=== PATIENT | female | born 1980 | race Two or more races ===

== ENCOUNTER → 2017-02-04 | Emergency (ER) | payer SELFPAY ==
[~2017-02-04] VITALS: Ht 167.6 cm; Wt 93.0 kg
[~2017-02-04] MED LIST: IBUPROFEN600 MG ORAL; KEFLEX500 MG ORAL; Morphine Sulfate 4mg/ml Inj IVP ONE; Tubing IV Cassette IV ONE
--- NOTE | 2017-02-04 22:26 | Emergency Room Report ---
History of Present Illness General Chief Complaint: Abdominal Pain Source: Patient Present Illness HPI Is a 36-year-old female with no past medical history. She presents with chief complaint abdominal pain. Onset around noon and was acute. Pain was diffuse 10 out of 10. Said it felt like she was having cramps of having a baby. Pain can be better now. Now localized to the lower quadrant. No dysuria frequency. No hematuria. He has anorexia and has not eaten anything since lunch. Worse with palpation. No fever or chills. No nausea no vomiting. No diarrhea. No sick contact. Allergies: Coded Allergies: Crab (Verified Allergy, Unknown, 02/04/17) Patient History Past Medical History: none Past Surgical History: none Pertinent Family History: none Social History: Denies: smoking Last Menstrual Period: 01/27/17 Now: No Immunizations: other Reviewed Nursing Documentation: PMH: Agreed, PSxH: Agreed Nursing Documentation-PM Past Medical History: No Stated History Review of Systems Eye: Denies: blurred vision, eye pain ENT: Denies: ear pain, nose congestion, throat swelling Respiratory: Denies: cough, shortness of breath Cardiovascular: Denies: chest pain, palpitations Gastrointestinal: Reports: abdominal pain, Denies: diarrhea, nausea, vomiting Musculoskeletal: Denies: back pain, joint pain Skin: Denies: rash Neurological: Denies: headache, numbness Endocrine: Denies: increased thirst, increased urine Hematologic/Lymphatic: Denies: easy bruising All Other Systems: negative except mentioned in HPI Physical Exam Vital Signs Date Time Temp Pulse Resp B/P Pulse Ox O2 Delivery O2 Flow Rate FiO2 02/04/17 22:12 98.8 110 19 112/69 98 Room Air vitals with tachycardia Sp02 EP Interpretation: reviewed, normal General Appearance: well appearing, no apparent distress, alert Head: normocephalic, atraumatic Eyes: bilateral eye EOMI, bilateral eye PERRL ENT: hearing grossly normal, normal pharynx Neck: full range of motion, supple, no meningismus Respiratory: chest non-tender, lungs clear, normal breath sounds Cardiovascular #1: regular rate, rhythm, no murmur Gastrointestinal: normal bowel sounds, no mass, no organomegaly, no bruit, non- distended, tenderness - Right lower quadrant Musculoskeletal: back normal, gait/station normal, normal range of motion Psychiatric: mood/affect normal Skin: warm/dry Medical Decision Making Diagnostic Impression: Primary Impression: Abdominal pain Qualified Codes: R10.84 - Generalized abdominal pain Additional Impression: UTI (urinary tract infection) Qualified Codes: N30.00 - Acute cystitis without hematuria ER Course Patient with abdominal pain. No evidence of acute abdomen. No evidence of obstruction. CT scan unremarkable. Now she is pain-free. May have a mild urinary tract infection. We'll put on antibiotics. Lab Results Impression labs with mild leukocytosis Last Vital Signs Date Time Temp Pulse Resp B/P Pulse Ox O2 Delivery O2 Flow Rate FiO2 02/04/17 22:12 98.8 110 19 112/69 98 Room Air Status: improved Disposition: HOME, SELF-CARE Condition: Stable Scripts Ibuprofen* (MOTRIN*) 600 Mg Tablet 600 MG ORAL THREE TIMES A DAY, #30 TAB 0 Refills Prov: RADHA SANTOYO M.D. 02/05/17 Cephalexin* (KEFLEX*) 500 Mg Capsule 500 MG ORAL TID, #21 CAP 0 Refills Prov: RADHA SANTOYO M.D. 02/05/17 Patient Instructions: Abdominal Pain, Adult Additional Instructions: Followup with your DrTayler in 2-3 days. Return if symptom worsen. RADHA SANTOYO M.D. Feb 04, 2017 22:26
[2017-02-04 22:51] LABS: BASOPHILS % (AUTO) 0.7 % (0.0-2.0); EOSINOPHILS % (AUTO) 1.2 % (0.0-3.0); LYMPHOCYTES % (AUTO) 16.4 % (20.0-45.0); MEAN CORPUSCULAR HEMOGLOBIN 27.3 PG (27.0-31.0); MEAN CORPUSCULAR HGB CONC 31.8 G/DL (32.0-36.0); MEAN CORPUSCULAR VOLUME 86 FL (80-99); MEAN PLATELET VOLUME 6.6 FL (6.5-10.1); MONOCYTES % (AUTO) 4.2 % (1.0-10.0); NEUTROPHILS % (AUTO) 77.5 % (45.0-75.0); PLATELET COUNT 349 K/UL (150-450); RED BLOOD COUNT 4.43 M/UL (4.20-5.40); RED CELL DISTRIBUTION WIDTH 13.4 % (11.6-14.8); WHITE BLOOD COUNT 15.9 K/UL (4.8-10.8)
[2017-02-04 23:00] LABS: APPEARANCE,URINE CLEAR; KETONES,URINE NEGATIVE (NEGATIVE); LEUKOCYTE ESTERASE ,URINE 2+ (NEGATIVE); NITRITE,URINE NEGATIVE (NEGATIVE); PH,URINE 6.5 (4.5-8.0); PROTEIN,URINE NEGATIVE (NEGATIVE); UROBILINOGEN,URINE NORMAL MG/DL (0.0-1.0)
[2017-02-04 23:05] LABS: RBC,URINE 0-2 /HPF (0 - 2)
[2017-02-04 23:06] LABS: BACTERIA,URINE OCCASIONAL /HPF; SQUAMOUS EPITHELIAL CELL,UR FEW /LPF (NONE/OCC)
[2017-02-04 23:10] LABS: ALANINE AMINOTRANSFERASE 20 U/L (3-33); ALBUMIN/GLOBULIN RATIO 1.2 (1.0-2.7); ANION GAP 16 (5-15); ASPARTATE AMINO TRANSFERASE 15 U/L (5-40); CALCIUM 9.2 mg/dL (8.6-10.2); CARBON DIOXIDE 23 mEQ/L (20-30); CHLORIDE 98 mEQ/L (98-107); CREATININE 0.6 mg/dL (0.5-0.9); GLOMERULAR FILTRATION RATE > 60 mL/min (>60); HEMOLYSIS 4; LIPASE 23 U/L (< 60); POTASSIUM 4.2 mEQ/L (3.4-4.9); SODIUM 137 mEQ/L (135-145); TOTAL PROTEIN 7.7 g/dL (6.6-8.7)
[2017-02-04 23:35] VITALS: BP 99/58
[2017-02-05 00:47] VITALS: BP 118/72
[2017-02-05 00:48] VITALS: BP 118/72
--- NOTE | 2017-02-05 10:17 | Diagnostic Imaging Report ---
\H\CT Abdomen/Pelvis with Intravenous Contrast INDICATION: \N\Abdominal pain.\H\ COMPARISON: \N\None\H\ TECHNIQUE: Serial axial images were obtained from the lung bases through the symphysis pubis after intravenous administration of contrast. Coronal and sagittal reformats were obtained. Dose Estimate: Total DLP \N\1497\H\ mGycm CTDIvol \N\30\H\ mGy FINDINGS: The visualized lung bases are clear. The liver is low in attenuation compatible with hepatic steatosis. The gallbladder is mildly distended without CT evidence of cholelithiasis or acute cholecystitis. The pancreas, spleen and adrenal glands are unremarkable. No calculus is identified within either kidney, along the expected course of the ureters or within the urinary bladder. There is no evidence of hydronephrosis or asymmetric perirenal inflammatory change. The urinary bladder is grossly unremarkable. A 3 x 2 cm low-attenuation lesion in the right adnexa may represent a small right ovarian cyst, possibly with septations. A 2 cm calcified uterine fibroid is identified. There is no evidence of acute diverticulitis or acute appendicitis. The visualized bowel are grossly unremarkable. There is no evidence of obstruction. There is no extraluminal gas or fluid. There are no enlarged lymph nodes. There is no significant calcified atherosclerotic disease of the the abdominal aorta. The osseous structures are unremarkable. \N\\H\Impression: 1. No evidence of acute intra-abdominal or pelvic pathology. 2. Hepatic steatosis. Please correlate with clinical parameters and LFTs. 3. Probable 3 x 2 cm right ovarian cyst, possibly with internal septations. Consider short-term pelvic ultrasound. Small calcified uterine fibroid noted.\N\
== END | disposition home or self-care (01) ==
LOC: EMR 22:50
DX: R10.9 Unspecified abdominal pain (principal); N39.0 Urinary tract infection, site not specified; K76.0 Fatty (change of) liver, not elsewhere classified
CPT/HCPCS: 36415; 74177; 80053; 81003; 81025; 83690; 85025; 96360; 96374; 96375; 99284; J2270; J2405; Q9967